=== PATIENT | female | born 1965 | race Caucasian/White ===

== ENCOUNTER 2018-01-27 12:37 | Emergency (ER) | payer SELFPAY ==
[~2018-01-27] VITALS: Ht 177.8 cm; Wt 150.1 kg
[~2018-01-27 12:37] MED LIST: LEVAQUIN750 MG PO
[2018-01-27] MEDS ORDERED: FLOMAX0.4 MG PO (13:02)
[2018-01-27] MEDS ORDERED: ZOFRAN ODT4 MG PO (14:43)
[2018-01-27] MEDS ORDERED: NEURONTIN300 MG PO (14:43)
[2018-01-27] MEDS ORDERED: VALTREX1000 MG PO (14:43)
== END 2018-01-27 15:18 | disposition home or self-care (01) ==
LOC: ED 12:37
DX: B02.9 Zoster without complications (principal); Z88.5 Allergy status to narcotic agent; Z79.899 Other long term (current) drug therapy
CPT/HCPCS: 36415; 80053; 81001; 83690; 85025; 99284